=== PATIENT | male | born 1995 ===

== ENCOUNTER → 2018-01-19 | Outpatient (CLI) | payer OTHER ==
[~2018-01-19] MED LIST: ADDE30XRPT PO; CYCL10TA29 PO; IBUP800T37 PO
--- NOTE | 2018-01-19 11:07 | RADIOLOGY IMAGING REPORT ---
FACILITY: [facility] - [place] PATIENT NAME: Jt Diaz : 1995 MR: [id number] V: [id number] EXAM DATE: ORDERING PHYSICIAN: TONY ATKINSON TECHNOLOGIST: Location: [facility] [place] Patient: Jt Diaz : 1995 Visit/Account:[id number] Date of Sevice: 01/19/2018 Exam type: FOOT 3 VIEW RIGHT History: L5 2918, lateral pain and bruising in right foot Comparison: None. Findings: There is a transverse fracture through the lateral portion of the base of the right fifth metatarsal with approximate 4.5 mm diastases of the fracture fragments IMPRESSION: 1. Transverse fracture to the base of the right fifth metatarsal with approximately 4.5 mm diastases of the fracture fragments. Report Dictated By: Chika Shi MD at 01/19/2018 11:02 AM Report E-Signed By: Chika Shi MD at 01/19/2018 11:04 AM WSN:[email or web address]
== END ==
LOC: RAD 09:57
PROVIDERS: ATTEND Family Medicine
DX: S92.351A Displaced fracture of fifth metatarsal bone, right foot, initial encounter for closed fracture (principal)